=== PATIENT | female | born 1945 | race Caucasian/White ===

== ENCOUNTER → 2016-08-11 | Outpatient (REF) | payer MEDICARE ==
[~2016-08-11] MED LIST: AMLO2.5T PO; ASPI81TA11 PO; LISI40TAB PO; SIMV20TA2 PO
[2016-08-11 13:55] LABS: BASO % 0.4 % (0.0-1.0); EOS # 0.1 K/mm3 (0.0-0.50); EOS % 1.4 % (0.0-3.0); LARGE UNSTAINED CELL # 0.2 K/mm3 (0.0-0.4); LARGE UNSTAINED CELL % 2.2 % (0.0-4.0); LYMPH # 3.6 K/mm3 (1.5-4.5); MEAN CORPUSCULAR HEMOGLOBIN 33.7 pg (27.0-33.0); MEAN CORPUSCULAR HGB CONC 33.5 g/dl (32.0-36.5); MEAN CORPUSCULAR VOLUME 100.4 fl (80.0-96.0); MONO # 0.4 K/mm3 (0.0-0.8); MONO % 5.5 % (0.0-5.0); NEUTROPHILS # 2.9 K/mm3 (1.8-7.7); NEUTROPHILS % 41.6 % (36.0-66.0); PLATELET COUNT, AUTOMATED 120 k/mm3 (150-450); RED CELL DISTRIBUTION WIDTH 12.4 % (11.5-14.5)
[2016-08-11 14:09] LABS: REASON FOR REVIEW COMPREHENSIVE REVIEW
== END ==
LOC: M LAB REF 13:19
PROVIDERS: ATTEND Internal Medicine
DX: D69.6 Thrombocytopenia, unspecified (principal)

== ENCOUNTER 2017-10-07 08:35 | Day surgery (SDC) | payer MEDICARE ==
[2017-10-07] MEDS: LR 1,000 ML IV ×2 (08:45)
[2017-10-07] MEDS: dexameTHASONE 4 MG/ML 1ML VIAL (J1100) As Ordered ×2 (11:21)
[2017-10-07] MEDS: LIDOCAINE 2% MDV 20 ML VIAL As Ordered ×2 (11:21)
[2017-10-07] MEDS: BUPIVACAINE HCL 0.5% 30 ML VIAL As Ordered ×2 (11:21)
[2017-10-07] MEDS ORDERED: fentaNYL 100 MCG/2 ML INJECTION (J3010) As Ordered ×2 (11:36)
[2017-10-07] MEDS ORDERED: PROPOFOL 200 MG/20 ML VIAL As Ordered ×2 (11:36)
[2017-10-07] MEDS ORDERED: ONDANSETRON 4MG/2ML VIAL (J2405) As Ordered ×2 (11:36)
[2017-10-07] MEDS ORDERED: LIDOCAINE 2% INJ 100 MG/5 ML SDV (FOR ANES.) As Ordered ×2 (11:36)
[2017-10-07] MEDS ORDERED: MIDAZOLAM INJ 2 MG/2 ML VIAL (J2250) As Ordered ×2 (11:36)
[2017-10-07] MEDS ORDERED: ePHEDrine SULFATE 25 MG/5 ML(5MG/ML) SYRINGE As Ordered ×2 (11:41)
[2017-10-07] MEDS: BACITRACIN PWD 50,000 UNITS VIAL As Ordered ×2 (11:54)
[2017-10-07] MEDS: NEOSPORIN GU IRRIG 20 ML VIAL As Ordered ×2 (11:54)
== END 2017-10-07 14:15 | disposition home or self-care (01) ==
LOC: M SDC 08:35
DX: M20.41 Other hammer toe(s) (acquired), right foot (principal); M24.574 Contracture, right foot; M20.42 Other hammer toe(s) (acquired), left foot; I10 Essential (primary) hypertension; E78.00 Pure hypercholesterolemia, unspecified; K76.0 Fatty (change of) liver, not elsewhere classified; M12.9 Arthropathy, unspecified; R29.898 Other symptoms and signs involving the musculoskeletal system; M81.0 Age-related osteoporosis without current pathological fracture; R06.83 Snoring; Z88.5 Allergy status to narcotic agent; Z79.899 Other long term (current) drug therapy; Z79.82 Long term (current) use of aspirin; Z78.0 Asymptomatic menopausal state; Z98.51 Tubal ligation status
CPT/HCPCS: 28285

== ENCOUNTER → 2018-10-23 | Outpatient (CLI) | payer MEDICARE ==
[~2018-10-23] MED LIST changes: -AMLO2.5T PO; +AMLO2.5T3 PO; +AMLO5TAB6 PO; -ASPI81TA11 PO; +ASPI81TA78 PO; +CALC600T31 PO; +CYAN500T8 PO; +FISH5CAP PO; +FLAXOIL3 PO; +FOSA70TA PO; +GARL1000 PO; +LISI40TA52 PO; -LISI40TAB PO; +MULT1TAB10 PO; +POTA10CA32; -SIMV20TA2 PO; +SIMV20TA22 PO; +VITA100067 PO; +VITA1TAB23 PO; +VITA400C7 PO
[2018-10-23 09:30] LABS: MEAN CORPUSCULAR HEMOGLOBIN 33.1 pg (27.0-33.0); MEAN CORPUSCULAR HGB CONC 33.3 g/dl (32.0-36.5); MEAN CORPUSCULAR VOLUME 99.3 fl (80.0-96.0); PLATELET COUNT, AUTOMATED 113 10^3/uL (150-450); RED BLOOD COUNT 4.53 10^6/uL (4.00-5.40); WHITE BLOOD COUNT 9.1 10^3/uL (4.0-10.0)
--- NOTE | 2018-10-23 09:36 | REP ---
Clinical: Preoperative assessment . Comparison: 09/29/2017 . Technique: PA and lateral. Findings: The mediastinum and cardiac silhouette are normal. The lung garcia are clear and without acute consolidation, effusion, or pneumothorax. The skeletal structures are intact and normal. Left shoulder repair. Impression: 1. No acute cardiopulmonary process. Electronically Signed by Lionel Lemon MD 10/23/2018 09:27 A
[2018-10-23 10:00] LABS: ALBUMIN 3.9 GM/DL (3.2-5.2); BILIRUBIN,TOTAL 1.6 MG/DL (0.2-1.0); CALCIUM LEVEL 9.4 MG/DL (8.8-10.2); CREATININE FOR GFR 1.06 MG/DL (0.55-1.30); GLOMERULAR FILTRATION RATE 53.9 (>39); TOTAL PROTEIN 6.6 GM/DL (6.4-8.2)
[2018-10-23 10:18] LABS: EOSINOPHILS 1 % (0-5); LYMPHOCYTES 73 % (16-52); MONOCYTES 4 % (0-8); NEUTROPHILS 22 % (35-75); PLATELET ESTIMATE NORMAL (NORMAL)
--- NOTE | 2018-10-24 07:46 | ECGEPIP ---
[facility] Test Date: 2018-10-23 Pat Name: CORETTA MORALES Department: Room: - Gender: Female Tool Designer: DEANGELO : 1945 Requested By: Jovan Thompson Order Number: [id number] Reading MD: Lanny Nguyen Measurements Intervals [place] Rate: 76 P: 39 IN: 145 QRS: QRSD: 98 T: QT: 375 QTc: 422 Interpretive Statements SINUS RHYTHM NON-SPECIFIC STT ABNORMALITIES SIMILAR TO 09/29/17 Electronically Signed on 10-24-2018 7:46:52 EDT by Lanny Nguyen
== END ==
LOC: M LAB 08:19
PROVIDERS: ATTEND Podiatrist
DX: Z01.818 Encounter for other preprocedural examination (principal); M20.12 Hallux valgus (acquired), left foot; M20.42 Other hammer toe(s) (acquired), left foot; M79.672 Pain in left foot

== ENCOUNTER 2018-11-03 07:12 | Day surgery (SDC) | payer MEDICARE ==
[~2018-11-03] VITALS: Ht 157.5 cm; Wt 71.1 kg
[~2018-11-03 07:12] MED LIST changes: +ASPI-225 PO; -ASPI81TA78 PO; +LR 1,000 ML IV ONE; +SIMV20TA2 PO; -SIMV20TA22 PO
[2018-11-03] MEDS ORDERED: SCOPOLAMINE 1MG TRANSDERMAL PATCH As Ordered ONE (08:08)
[2018-11-03] MEDS ORDERED: SCOPOLAMINE 1MG TRANSDERMAL PATCH TOP ONE (08:15)
[2018-11-03] MEDS ORDERED: BACITRACIN PWD 50,000 UNITS VIAL As Ordered ONE (08:20)
[2018-11-03] MEDS ORDERED: NEOSPORIN GU IRRIG 20 ML VIAL As Ordered ONE (08:20)
[2018-11-03] MEDS ORDERED: BUPIVACAINE HCL 0.5% 30 ML VIAL As Ordered ONE (08:20)
[2018-11-03] MEDS ORDERED: dexameTHASONE 4 MG/ML 1ML VIAL (J1100) As Ordered ONE (08:20)
[2018-11-03] MEDS ORDERED: LIDOCAINE 2% MDV 20 ML VIAL As Ordered ONE (08:20)
[2018-11-03] MEDS ORDERED: LIDOCAINE 2% INJ 100 MG/5 ML SDV (FOR ANES.) As Ordered ONE (10:17)
[2018-11-03] MEDS ORDERED: MIDAZOLAM INJ 2 MG/2 ML VIAL (J2250) As Ordered ONE (10:17)
[2018-11-03] MEDS ORDERED: PROPOFOL 200 MG/20 ML VIAL As Ordered ONE (10:17)
[2018-11-03] MEDS ORDERED: GLYCOPYRROLATE INJ 0.2 MG/ML 2 ML VIAL As Ordered ONE (10:17)
[2018-11-03] MEDS ORDERED: ONDANSETRON 4MG/2ML VIAL (J2405) As Ordered ONE (10:17)
[2018-11-03] MEDS ORDERED: fentaNYL 100 MCG/2 ML INJECTION (J3010) As Ordered ONE (10:17)
[2018-11-03] MEDS ORDERED: KETAMINE HCL 200 MG/20 ML VIAL As Ordered ONE (10:17)
[2018-11-03] MEDS ORDERED: PHENYLephrine HCL 500 MCG/5 ML (100MCG/ML) SYRINGE (J2370) As Ordered ONE (10:39)
[2018-11-03 12:37] VITALS: BP 150/82
--- NOTE | 2018-11-03 12:50 | REP ---
LEFT FOOT: Three views obtained portably. HISTORY: Postop evaluation. FINDINGS: The patient is status post 1st metatarsal bunionectomy with a metallic screw in place. In addition an osteotomy and resection has been performed at the level of the PIP joint of the 2nd toe. There is a metallic pin across the IP joints of the 2nd toe. X-rays were obtained through overlying dressing. Plantar calcaneal spurring is noted. Electronically Signed by Ryan Landry MD 11/03/2018 08:07 P
--- NOTE | 2018-11-05 12:16 | RO ---
DATE OF PROCEDURE: 11/03/2018 PREPROCEDURE DIAGNOSES: Hallux valgus metatarsus primus varus deformity, hammer toe deformity second toe left foot. POSTPROCEDURE DIAGNOSES: Hallux valgus metatarsus primus varus deformity, hammer toe deformity second toe left foot. PROCEDURE: 1. Karl bunionectomy with internal screw fixation, 3.0 x 18 mm x 1 left foot. 2. Proximal interphalangeal joint arthroplasty with external wire fixation 0.045 x 1. 3. Dorsal metatarsal phalangeal joint capsulotomy left foot. SURGEON: Jovan Thompson DPM BUSINESS PLANNING ANALYST: None. ANESTHESIA: Local MAC. IRRIGATION: Dilute bacitracin, neomycin and polymyxin B solution. HEMOSTASIS: Ankle pneumatic tourniquet at 200 mmHg for 48 minutes left ankle. HARDWARE UTILIZED: Arthrex 3.0 x 18 mm headless compression screw and a 0.045 K wire. DESCRIPTION OF OPERATION: On 11/03/2018, this 73-year-old white female was taken from her hospital room to the operating room and placed on the operating room table in a supine position. Following the induction of IV sedation and local and regional anesthesia, the left lower extremity was prepped and draped in the usual aseptic manner. Attention was directed to the patient's left foot where there was noted to be a hallux valgus deformity. At this time, a 5 cm incision was placed over the first metatarsal phalangeal joint medial to the extensor tendon. The incision was deepened through subcutaneous tissues and all coursing venous tributaries were identified, underscored, clamped, cut, ligated and electrocoagulated as necessary. Dissection was carried into the first intermetatarsal space where dissection was carried down to the level of the fibular sesamoid. The conjoined tendon was sharply released. Attention was directed to the medial surface of the first metatarsal where V shaped osteotomy was performed on the distal metaphysis of the first metatarsal. Upon completion of this osteotomy, the capital fragment was transposed 40% of the width of the shaft of the first metatarsal and fixated with a 3.0 x 18 mm headless compression screw. The osteotomy was noted to be stable in all three cardinal planes. The redundant cortical spike was then osteotomized from distal to proximal through and through. Medial surface was rasped to a smooth contour with a handheld rasp. The wound was flushed with copious amounts of dilute bacitracin, neomycin and polymyxin B solution. Capsular structures were coapted and maintained utilizing #2-0 Monocryl in a simple interrupted type fashion. Subcutaneous tissue coapted and maintained utilizing #4-0 Monocryl in a simple interrupted type fashion. Skin incision coapted and maintained utilizing #5-0 Monocryl in a continuous subcuticular type fashion. This was reinforced with Steri-Strips. Attention was then directed to the second toe where the following procedure was performed. PROXIMAL INTERPHALANGEAL JOINT ARTHROPLASTY SECOND TOE LEFT FOOT: Attention was directed to the patient's second toe of the left foot where there was noted to be a hammer toe deformity. At this time, a 2 cm incision was placed over the proximal interphalangeal joint of the second toe. The incision was deepened through subcutaneous tissues and all coursing venous tributaries were identified, underscored, clamped, cut, ligated and electrocoagulated as necessary. Transverse tenotomy and capsulotomy was performed at the level of the proximal interphalangeal joint, and the extensor expansion was released utilizing a dissection scissor. Utilizing a power saw, an osteotomy was performed at the anatomical neck of the proximal phalanx from dorsal to plantar through and through. This was extirpated from the wound. The base of the distal phalanx was then osteotomized removing the articular cartilage. The wound was flushed with copious amounts of dilute bacitracin, neomycin and polymyxin B solution. Utilizing a 0.045 K wire, a wire was driven through the middle and distal phalanx and retrograde into the proximal phalanx utilizing C-arm imagery. There was still a slight dorsal contracture of the metatarsal phalangeal joint, therefore the following procedure was performed. DORSAL METATARSAL CAPSULOTOMY SECOND METATARSAL PHALANGEAL JOINT LEFT FOOT: Attention was directed to patient's foot where a horizontal stab incision was placed over the metatarsal phalangeal joint. The extensor tendon was retracted in a medial direction and utilizing sharp dissection was carried down to the metatarsal phalangeal joint releasing the dorsal capsule of the metatarsal phalangeal joint. The wound was then flushed with copious amounts of dilute bacitracin, neomycin and polymyxin B solution. Attention was directed toward closure where the extensor tendon was coapted and maintained utilizing #4-0 braided Nylon suture and a four stranded core repair, modified Steele. Subcutaneous tissue were coapted and maintained using #4-0 Monocryl in a simple interrupted type fashion. Skin incision was coapted and maintained using #4-0 Prolene in simple interrupted and horizontal mattress type fashion. Following the completion of the surgical procedure, 4 mg of dexamethasone sodium phosphate was instilled proximal to the surgical site. Attention was directed towards bandaging where a sterile compressive bandage was applied consisting of Adaptic, 4x4s, 4x4 splints, Arina, Kerlix and Coban. The ankle pneumatic tourniquet was rapidly deflated and instantaneous capillary filling time was noted to digits of 1 through 5 of the patient's left foot. The patient having apparently tolerated the surgical procedure well was taken from the operating room (OR) to the recovery room for further monitoring by the anesthesia department. Postoperative instructions given upon discharge.
== END 2018-11-03 12:51 | disposition home or self-care (01) ==
LOC: M SDC 07:12
PROVIDERS: ATTEND Podiatrist
DX: M20.12 Hallux valgus (acquired), left foot (principal); M20.42 Other hammer toe(s) (acquired), left foot; M79.672 Pain in left foot; I10 Essential (primary) hypertension; E78.5 Hyperlipidemia, unspecified; Z79.899 Other long term (current) drug therapy; Z88.5 Allergy status to narcotic agent
CPT/HCPCS: 28270; 28285; 28296; 73630; 88300; C1776; J0690; J1100; J2250; J2370; J2405; J3010

== ENCOUNTER → 2019-08-07 | Outpatient (REF) | payer MEDICARE ==
[~2019-08-07] MED LIST changes: -ASPI-225 PO; +ASPI81TA78 PO; -LR 1,000 ML IV ONE; -SIMV20TA2 PO; +SIMV20TA22 PO
== END ==
LOC: M LAB REF 12:48
PROVIDERS: ATTEND Internal Medicine
DX: D72.9 Disorder of white blood cells, unspecified (principal)

== ENCOUNTER → 2019-08-13 | Outpatient (REF) | payer MEDICARE | LOC: M LAB REF 12:40 | PROVIDERS: ATTEND Internal Medicine | DX: D72.820 Lymphocytosis (symptomatic) (principal) ==

== ENCOUNTER → 2021-02-26 | Outpatient (CLI) | payer MEDICARE ==
[~2021-02-26] MED LIST changes: +AMLO1TAB24 PO; -AMLO5TAB6 PO; +ASCO250T20 PO; +CALCTAB89 PO; +COVI100V IM; +CYAN500T14 PO; -CYAN500T8 PO; +FISH OIL 1200 MG PO; +FLAX1300 PO; +KP F1200 PO; +MULTTAB61 PO; -VITA1TAB23 PO; +VITA200048 PO; +VITAE40CA PO
[2021-02-26 12:10] LABS: BASO % 0.3 % (0.0-1.0); EOS # 0.1 10^3/uL (0.0-0.5); HEMATOCRIT 48.3 % (36.0-47.0); LYMPH # 6.3 10^3/uL (1.5-5.0); LYMPH % 58.7 % (24.0-44.0); MEAN CORPUSCULAR HGB CONC 33.1 g/dl (32.0-36.5); MEAN CORPUSCULAR VOLUME 99.6 fl (80.0-96.0); MONO # 0.6 10^3/uL (0.0-0.8); MONO % 5.3 % (2.0-8.0); NEUTROPHILS # 3.7 10^3/uL (1.5-8.5); NEUTROPHILS % 34.3 % (36.0-66.0); PLATELET COUNT, AUTOMATED 116 10^3/uL (150-450); RED BLOOD COUNT 4.85 10^6/uL (4.00-5.40); WHITE BLOOD COUNT 10.7 10^3/uL (4.0-10.0)
[2021-02-26 12:52] LABS: ALBUMIN 4.1 GM/DL (3.2-5.2); BILIRUBIN,TOTAL 1.6 MG/DL (0.2-1.0); CALCIUM LEVEL 9.6 MG/DL (8.8-10.2); CREATININE FOR GFR 1.01 MG/DL (0.55-1.30); GLOMERULAR FILTRATION RATE 56.7 (>39); POTASSIUM SERUM 4.5 MEQ/L (3.5-5.1)
== END ==
LOC: M LAB 11:04
PROVIDERS: ATTEND Internal Medicine Medical Oncology
DX: C91.90 Lymphoid leukemia, unspecified not having achieved remission (principal)

== ENCOUNTER → 2022-10-22 | Outpatient (CLI) | payer MEDICARE ==
[~2022-10-22] MED LIST changes: +ALEN70TA87 PO; -FOSA70TA PO; -POTA10CA32; +POTA10CA60; +[UNRECOGNIZED DRUG - CODE] PO
== END ==
LOC: M WHC 10:21
PROVIDERS: ATTEND Internal Medicine
DX: Z12.31 Encounter for screening mammogram for malignant neoplasm of breast (principal); M85.88 Other specified disorders of bone density and structure, other site; M85.851 Other specified disorders of bone density and structure, right thigh; M85.852 Other specified disorders of bone density and structure, left thigh

== ENCOUNTER → 2023-12-15 | Outpatient (REF) | payer MEDICARE ==
[~2023-12-15] MED LIST changes: +AZIT-12 PO; +LISI40TA4 PO; -POTA10CA60; +POTA10CA70 PO
== END ==
LOC: M LAB REF 16:23
PROVIDERS: ATTEND Nurse Practitioner Family
DX: N39.0 Urinary tract infection, site not specified (principal)

== ENCOUNTER → 2024-08-29 | Outpatient (REF) | payer MEDICARE | LOC: M LAB REF 12:05 | PROVIDERS: ATTEND Internal Medicine | DX: N39.0 Urinary tract infection, site not specified (principal) ==

== ENCOUNTER → 2025-01-31 | Outpatient (CLI) | payer MEDICARE ==
[~2025-01-31] MED LIST changes: +AMLO2.5T3; +LISI40TA10 PO; -LISI40TA4 PO; +OLME40TA
== END ==
LOC: M RAD 07:17
PROVIDERS: ATTEND Student in an Organized Health Care Education/Training Program
DX: C91.90 Lymphoid leukemia, unspecified not having achieved remission (principal); R16.0 Hepatomegaly, not elsewhere classified

== ENCOUNTER → 2025-02-17 | Outpatient (REF) | payer MEDICARE | LOC: M LAB REF 19:35 | PROVIDERS: ATTEND Physician Assistant | DX: R30.0 Dysuria (principal) ==

== ENCOUNTER → 2025-03-23 | Outpatient (REF) | payer MEDICARE | LOC: M LAB REF 18:23 | PROVIDERS: ATTEND Student in an Organized Health Care Education/Training Program | DX: R30.0 Dysuria (principal) ==

== ENCOUNTER → 2025-04-22 | Outpatient (REF) | payer MEDICARE ==
[2025-04-22 12:25] LABS: APPEARANCE, URINE CLOUDY (CLEAR); BACTERIA, URINE AUTO 2+ (NEGATIVE); BILIRUBIN, URINE AUTO NEGATIVE (NEGATIVE); BLOOD, URINE BLOOD 1+ (NEGATIVE); GLUCOSE, URINE (UA) AUTO NEGATIVE (NEGATIVE); KETONE, URINE AUTO NEGATIVE (NEGATIVE); LEUKOCYTE ESTERASE, URINE AUTO 3+ (NEGATIVE); MUCUS, URINE SMALL (NEGATIVE); NITRITE, URINE AUTO NEGATIVE (NEGATIVE); PROTEIN, URINE AUTO 2+ mg/dL (NEGATIVE); RBC, URINE AUTO 38 /HPF (0-3); SPECIFIC GRAVITY URINE AUTO 1.013 (1.002-1.035); SQUAMOUS EPITHELIAL CELL UR AU 5 /HPF (0-6); UROBILINOGEN, URINE AUTO 0.2 mg/dL (0.0-2.0); WBC, URINE AUTO TNTC /HPF (0-3)
== END ==
LOC: M LAB REF 11:45
DX: N30.91 Cystitis, unspecified with hematuria (principal)